=== PATIENT | female | born 1975 | race Caucasian/White ===

== ENCOUNTER 2019-02-16 19:43 | Emergency (ER) | payer SELFPAY ==
[~2019-02-16] VITALS: Ht 165.1 cm; Wt 104.5 kg
[2019-02-16] MEDS ORDERED: MORPHINE SULFATE 2 MG/ML SYRINGE IVP ONE (20:30)
[2019-02-16] MEDS ORDERED: ONDANSETRON HCL 4 MG/2 ML VIAL IVP ONE (20:30)
[2019-02-16] MEDS ORDERED: KETOROLAC TROMETHAMINE 30 MG/ML VIAL IVP ONE (20:30)
[2019-02-16 20:45] LABS: BASOPHILS % (AUTO) 1.3 % (0.0-2.0); HEMATOCRIT 41.1 % (36-46); HEMOGLOBIN 13.4 g/dL (12.0-16.0); LYMPHOCYTES # (AUTO) 3.6 K/uL (1.0-4.8); LYMPHOCYTES % (AUTO) 39.3 % (22.0-44.0); MEAN CORPUSCULAR HEMOGLOBIN 28.7 pg (26.0-34.0); MEAN CORPUSCULAR HGB CONC 32.7 G/dL (31.0-37.0); MEAN CORPUSCULAR VOLUME 88 fL (80-100); MONOCYTES # (AUTO) 0.4 K/uL (0.1-1.0); MONOCYTES % (AUTO) 4.6 % (2.0-9.0); NEUTROPHILS # (AUTO) 4.9 K/uL (1.8-7.7); NEUTROPHILS % (AUTO) 53.8 % (40.0-70.0); PLATELET COUNT (AUTO) 305 K/uL (150-450); RED BLOOD CELL COUNT(AUTO) 4.69 MIL/uL (4.00-5.20); RED CELL DISTRIBUTION WIDTH 13.8 % (11.5-14.5)
[2019-02-16 20:53] LABS: ANION GAP 12 mmol/L (8-16); CALCIUM, TOTAL 10.3 mg/dL (8.8-10.5); CARBON DIOXIDE 23 mmol/L (22-29); CHLORIDE 99 mmol/L (98-107); CREATININE 0.74 mg/dL (0.60-1.30); GLOMERULAR FILTR. RATE CALC > 60 mL/min (>60); GLUCOSE,RANDOM 180 mg/dL (70-110); POTASSIUM 3.7 mmol/L (3.5-5.1); SODIUM SERUM 134 mmol/L (136-145); UREA NITROGEN, BLOOD 11 mg/dL (7-18)
[2019-02-16 20:59] LABS: ALANINE AMINOTRANSFERASE 27 U/L (12-78); ALBUMIN 3.8 g/dL (3.4-5.0); ALKALINE PHOSPHATASE 85 U/L (46-116); ASPARTATE AMINOTRANSFERASE 22 U/L (15-37); BILIRUBIN,TOTAL 0.2 mg/dL (0.1-1.0); TOTAL PROTEIN, SERUM 7.6 g/dL (6.4-8.2)
[2019-02-16 23:01] VITALS: BP 140/92
== END 2019-02-16 21:56 | disposition home or self-care (01) ==
LOC: EMS 19:45
DX: M94.0 Chondrocostal junction syndrome [Tietze] (principal); E11.9 Type 2 diabetes mellitus without complications
CPT/HCPCS: 36415; 71046; 80053; 84484; 85025; 93005; 96374; 96375; 99284; J1885; J2270; J2405

== ENCOUNTER 2019-07-22 21:15 | Emergency (ER) | payer SELFPAY ==
[~2019-07-22] VITALS: Ht 165.1 cm; Wt 100.5 kg
[2019-07-22 22:07] LABS: GLUCOSE,POINT OF CARE 169 MG/DL (70-110)
[2019-07-22] MEDS ORDERED: IBUPROFEN 600 MG TABLET PO ONE (23:30)
[2019-07-22] MEDS ORDERED: ACETAMINOPHEN 500 MG TABLET PO ONE (23:30)
[2019-07-23 02:24] VITALS: BP 125/74
== END 2019-07-23 02:26 | disposition home or self-care (01) ==
LOC: EMS 21:17
DX: S93.491A Sprain of other ligament of right ankle, initial encounter (principal); E11.9 Type 2 diabetes mellitus without complications; X50.1XXA Overexertion from prolonged static or awkward postures, initial encounter; Y93.01 Activity, walking, marching and hiking; Y92.89 Other specified places as the place of occurrence of the external cause; Y99.8 Other external cause status
CPT/HCPCS: 29515

== ENCOUNTER 2019-12-20 22:46 | Emergency (ER) | payer MEDICAID, OTHER ==
[~2019-12-20] VITALS: Ht 165.1 cm; Wt 106.8 kg
[2019-12-21] MEDS ORDERED: KETOROLAC TROMETHAMINE 60 MG/2 ML VIAL IM ONE (01:15)
[2019-12-21 01:27] LABS: BASOPHILS % (AUTO) 0.9 % (0.0-2.0); EOSINOPHILS % (AUTO) 2.1 % (1.0-6.0); HEMATOCRIT 35.9 % (36-46); HEMOGLOBIN 12.1 g/dL (12.0-16.0); LYMPHOCYTES # (AUTO) 3.4 K/uL (1.0-4.8); MEAN CORPUSCULAR HEMOGLOBIN 28.8 pg (26.0-34.0); MEAN CORPUSCULAR HGB CONC 33.6 G/dL (31.0-37.0); MEAN CORPUSCULAR VOLUME 86 fL (80-100); MONOCYTES # (AUTO) 0.6 K/uL (0.1-1.0); MONOCYTES % (AUTO) 7.7 % (2.0-9.0); NEUTROPHILS # (AUTO) 3.2 K/uL (1.8-7.7); NEUTROPHILS % (AUTO) 43.3 % (40.0-70.0); PLATELET COUNT (AUTO) 292 K/uL (150-450); RED BLOOD CELL COUNT(AUTO) 4.19 MIL/uL (4.00-5.20)
[2019-12-21 01:45] LABS: ANION GAP 7 mmol/L (8-16); CALCIUM, TOTAL 9.1 mg/dL (8.8-10.5); CARBON DIOXIDE 26 mmol/L (22-29); CHLORIDE 101 mmol/L (98-107); CREATININE 0.73 mg/dL (0.60-1.30); GLOMERULAR FILTR. RATE CALC > 60 mL/min (>60); GLUCOSE,RANDOM 192 mg/dL (70-110); POTASSIUM 3.9 mmol/L (3.5-5.1); SODIUM SERUM 134 mmol/L (136-145); UREA NITROGEN, BLOOD 12 mg/dL (7-18)
[2019-12-21 01:56] LABS: ALANINE AMINOTRANSFERASE 25 U/L (12-78); ALBUMIN 3.3 g/dL (3.4-5.0); ALKALINE PHOSPHATASE 73 U/L (46-116); ASPARTATE AMINOTRANSFERASE 17 U/L (15-37); BILIRUBIN,TOTAL 0.2 mg/dL (0.1-1.0); HCG,QUANTITATIVE < 1 mIU/mL (0-6); TOTAL PROTEIN, SERUM 6.8 g/dL (6.4-8.2)
[2019-12-21 02:52] LABS: B-TYPE NATRIURETIC PEPTIDE 6 pg/mL (0-100)
[2019-12-21 03:39] VITALS: BP 121/74
== END 2019-12-21 04:13 | disposition home or self-care (01) ==
LOC: EMS 22:47
DX: E11.65 Type 2 diabetes mellitus with hyperglycemia (principal); F41.9 Anxiety disorder, unspecified
CPT/HCPCS: 85379; 93005; 96372

== ENCOUNTER 2020-02-13 18:04 | Emergency (ER) | payer MEDICAID, OTHER ==
[~2020-02-13] VITALS: Ht 165.1 cm; Wt 106.8 kg
[2020-02-13] MEDS ORDERED: DiphenhydrAMINE HCL 50 MG/ML VIAL IVP STA (19:40)
[2020-02-13] MEDS ORDERED: METOCLOPRAMIDE HCL 5 MG/ML 2 ML VIAL IVP ONE (19:45)
[2020-02-13] MEDS ORDERED: ACETAMINOPHEN 500 MG TABLET PO ONE (19:45)
[2020-02-13] MEDS ORDERED: KETOROLAC TROMETHAMINE 30 MG/ML VIAL IVP ONE (19:45)
[2020-02-13] MEDS ORDERED: SODIUM CHLORIDE 0.9% 1,000 ML IV ONE (19:45)
[2020-02-13 20:03] LABS: BASOPHILS % (AUTO) 1.1 % (0.0-2.0); EOSINOPHILS % (AUTO) 1.5 % (1.0-6.0); HEMATOCRIT 38.1 % (36-46); HEMOGLOBIN 12.7 g/dL (12.0-16.0); LYMPHOCYTES % (AUTO) 43.1 % (22.0-44.0); MEAN CORPUSCULAR HEMOGLOBIN 28.7 pg (26.0-34.0); MEAN CORPUSCULAR HGB CONC 33.3 G/dL (31.0-37.0); MEAN CORPUSCULAR VOLUME 86 fL (80-100); MONOCYTES # (AUTO) 0.5 K/uL (0.1-1.0); MONOCYTES % (AUTO) 5.4 % (2.0-9.0); NEUTROPHILS # (AUTO) 4.6 K/uL (1.8-7.7); NEUTROPHILS % (AUTO) 48.9 % (40.0-70.0); PLATELET COUNT (AUTO) 315 K/uL (150-450); RED BLOOD CELL COUNT(AUTO) 4.42 MIL/uL (4.00-5.20); RED CELL DISTRIBUTION WIDTH 13.9 % (11.5-14.5)
[2020-02-13 20:04] LABS: APPEARANCE,URINE CLEAR (CLEAR); BILIRUBIN,URINE NEGATIVE (NEGATIVE); GLUCOSE, URINE (UA) NEGATIVE (NEGATIVE); KETONES,URINE NEGATIVE (NEGATIVE); LEUKOCYTE ESTERASE ,URINE NEGATIVE (NEGATIVE); NITRATE,URINE NEGATIVE (NEGATIVE); OCCULT BLOOD,URINE NEGATIVE (NEGATIVE); PROTEIN,URINE NEGATIVE (NEGATIVE); UROBILINOGEN,URINE 0.2 mg/dL (<=1.0)
[2020-02-13 20:19] LABS: BACTERIA,URINE None Seen /HPF (None Seen); RBC,URINE None Seen /HPF (0-2); SQUAMOUS EPITHELIAL CELL,UR Few /LPF (None Seen); WBC,URINE None Seen /HPF (0-5)
[2020-02-13 20:33] LABS: ANION GAP 8 mmol/L (8-16); CALCIUM, TOTAL 9.4 mg/dL (8.8-10.5); CARBON DIOXIDE 30 mmol/L (22-29); CHLORIDE 99 mmol/L (98-107); CREATININE 0.77 mg/dL (0.60-1.30); GLOMERULAR FILTR. RATE CALC > 60 mL/min (>60); GLUCOSE,RANDOM 128 mg/dL (70-110); POTASSIUM 3.9 mmol/L (3.5-5.1); SODIUM SERUM 137 mmol/L (136-145); UREA NITROGEN, BLOOD 10 mg/dL (7-18)
[2020-02-13 20:39] LABS: ALANINE AMINOTRANSFERASE 32 U/L (12-78); ALBUMIN 3.6 g/dL (3.4-5.0); ALKALINE PHOSPHATASE 57 U/L (46-116); ASPARTATE AMINOTRANSFERASE 19 U/L (15-37); BILIRUBIN,TOTAL 0.2 mg/dL (0.1-1.0); TOTAL PROTEIN, SERUM 7.4 g/dL (6.4-8.2)
[2020-02-13 22:00] VITALS: BP 138/80
== END 2020-02-13 23:00 | disposition home or self-care (01) ==
LOC: EMS 18:08
DX: G43.909 Migraine, unspecified, not intractable, without status migrainosus (principal); E11.9 Type 2 diabetes mellitus without complications; R10.9 Unspecified abdominal pain; M54.5 Low back pain
CPT/HCPCS: 36415; 80053; 81001; 85025; 96374; 96375; 99284; J1200; J1885; J2765; J7030

== ENCOUNTER 2020-03-16 14:06 | Emergency (ER) | payer OTHER ==
[~2020-03-16] VITALS: Ht 172.7 cm; Wt 106.8 kg
[2020-03-16] MEDS ORDERED: DiphenhydrAMINE HCL 50 MG/ML VIAL IVP STA (14:56)
[2020-03-16] MEDS ORDERED: METOCLOPRAMIDE HCL 5 MG/ML 2 ML VIAL IVP ONE (15:00)
[2020-03-16] MEDS ORDERED: ACETAMINOPHEN 500 MG TABLET PO ONE (15:00)
[2020-03-16] MEDS ORDERED: KETOROLAC TROMETHAMINE 30 MG/ML VIAL IVP ONE (15:00)
[2020-03-16] MEDS ORDERED: SODIUM CHLORIDE 0.9% 1,000 ML IV ONE ×2 (15:00→17:00)
[2020-03-16 15:08] LABS: BASOPHILS % (AUTO) 0.5 % (0.0-2.0); EOSINOPHILS % (AUTO) 0.4 % (1.0-6.0); HEMATOCRIT 36.1 % (36-46); HEMOGLOBIN 12.5 g/dL (12.0-16.0); LYMPHOCYTES # (AUTO) 1.6 K/uL (1.0-4.8); LYMPHOCYTES % (AUTO) 30.5 % (22.0-44.0); MEAN CORPUSCULAR HEMOGLOBIN 29.7 pg (26.0-34.0); MEAN CORPUSCULAR HGB CONC 34.6 G/dL (31.0-37.0); MEAN CORPUSCULAR VOLUME 86 fL (80-100); MONOCYTES # (AUTO) 0.4 K/uL (0.1-1.0); MONOCYTES % (AUTO) 8.1 % (2.0-9.0); NEUTROPHILS # (AUTO) 3.2 K/uL (1.8-7.7); NEUTROPHILS % (AUTO) 60.5 % (40.0-70.0); PLATELET COUNT (AUTO) 283 K/uL (150-450); RED CELL DISTRIBUTION WIDTH 13.8 % (11.5-14.5)
[2020-03-16 15:36] LABS: ALANINE AMINOTRANSFERASE 41 U/L (12-78); ALBUMIN 3.4 g/dL (3.4-5.0); ALKALINE PHOSPHATASE 74 U/L (46-116); ANION GAP 7 mmol/L (8-16); ASPARTATE AMINOTRANSFERASE 28 U/L (15-37); BILIRUBIN,TOTAL 0.2 mg/dL (0.1-1.0); C-REACTIVE PROTEIN QUANT 2.63 mg/dL (0.00-0.30); CALCIUM, TOTAL 9.5 mg/dL (8.8-10.5); CARBON DIOXIDE 29 mmol/L (22-29); CHLORIDE 97 mmol/L (98-107); CREATINE KINASE, TOTAL ONLY 73 U/L (26-192); CREATININE 0.97 mg/dL (0.60-1.30); FERRITIN 72 ng/mL (8-252); GLOMERULAR FILTR. RATE CALC > 60 mL/min (>60); GLUCOSE,RANDOM 226 mg/dL (70-110); HCG,QUANTITATIVE < 1 mIU/mL (0-6); LACTATE DEHYDROGENASE 134 U/L (81-234); POTASSIUM 3.4 mmol/L (3.5-5.1); SODIUM SERUM 133 mmol/L (136-145); TOTAL PROTEIN, SERUM 7.5 g/dL (6.4-8.2); UREA NITROGEN, BLOOD 9 mg/dL (7-18)
[2020-03-16 15:39] LABS: D-DIMER 0.24 mg/L FEU (0.00-0.50); PROTHROMBIN TIME 10.6 SEC (9.4-11.6)
[2020-03-16 15:46] LABS: B-TYPE NATRIURETIC PEPTIDE < 5 pg/mL (0-100)
[2020-03-16] MEDS ORDERED: POTASSIUM CHLORIDE 20 MEQ ER TABLET PO ONE (16:30)
[2020-03-16] MEDS ORDERED: MORPHINE SULFATE 4 MG/ML SYRINGE IVP ONE (17:00)
[2020-03-16 17:14] VITALS: BP 105/53
== END 2020-03-16 19:40 | disposition home or self-care (01) ==
LOC: EMS 14:27
DX: U07.1 COVID-19 (principal); E87.6 Hypokalemia; J18.9 Pneumonia, unspecified organism; K76.0 Fatty (change of) liver, not elsewhere classified; R16.0 Hepatomegaly, not elsewhere classified; F12.90 Cannabis use, unspecified, uncomplicated; E11.9 Type 2 diabetes mellitus without complications
CPT/HCPCS: 36415; 71045; 76705; 80053; 82550; 82728; 83615; 83880; 84145; 84484; 84702; 85025; 85379; 85610; 85730; 86140; 93005; 96361; 96374; 96375; 99285; J1200; J1885; J2270; J2765; J7030

== ENCOUNTER 2020-03-31 16:22 | Emergency (ER) | payer OTHER ==
[~2020-03-31] VITALS: Ht 165.1 cm; Wt 104.5 kg
[2020-03-31] MEDS ORDERED: ASCO500 PO (16:28)
[2020-03-31 17:05] LABS: BASOPHILS % (AUTO) 1.3 % (0.0-2.0); HEMATOCRIT 39.1 % (36-46); HEMOGLOBIN 13.2 g/dL (12.0-16.0); LYMPHOCYTES % (AUTO) 39.2 % (22.0-44.0); MEAN CORPUSCULAR HEMOGLOBIN 28.9 pg (26.0-34.0); MEAN CORPUSCULAR HGB CONC 33.9 G/dL (31.0-37.0); MEAN CORPUSCULAR VOLUME 86 fL (80-100); MONOCYTES # (AUTO) 0.6 K/uL (0.1-1.0); MONOCYTES % (AUTO) 5.9 % (2.0-9.0); NEUTROPHILS # (AUTO) 5.4 K/uL (1.8-7.7); NEUTROPHILS % (AUTO) 52.6 % (40.0-70.0); PLATELET COUNT (AUTO) 357 K/uL (150-450); RED BLOOD CELL COUNT(AUTO) 4.57 MIL/uL (4.00-5.20); RED CELL DISTRIBUTION WIDTH 14.5 % (11.5-14.5)
[2020-03-31 17:11] LABS: ANION GAP 6 mmol/L (8-16); CALCIUM, TOTAL 9.9 mg/dL (8.8-10.5); CARBON DIOXIDE 30 mmol/L (22-29); CHLORIDE 98 mmol/L (98-107); CREATININE 0.79 mg/dL (0.60-1.30); GLOMERULAR FILTR. RATE CALC > 60 mL/min (>60); GLUCOSE,RANDOM 226 mg/dL (70-110); POTASSIUM 3.8 mmol/L (3.5-5.1); SODIUM SERUM 134 mmol/L (136-145); UREA NITROGEN, BLOOD 14 mg/dL (7-18)
[2020-03-31 17:23] LABS: ALANINE AMINOTRANSFERASE 36 U/L (12-78); ALBUMIN 3.4 g/dL (3.4-5.0); ALKALINE PHOSPHATASE 78 U/L (46-116); ASPARTATE AMINOTRANSFERASE 29 U/L (15-37); BILIRUBIN,TOTAL 0.2 mg/dL (0.1-1.0); CREATINE KINASE, TOTAL ONLY 57 U/L (26-192); HCG,QUANTITATIVE < 1 mIU/mL (0-6); TOTAL PROTEIN, SERUM 7.4 g/dL (6.4-8.2)
[2020-03-31 17:29] LABS: B-TYPE NATRIURETIC PEPTIDE 7 pg/mL (0-100)
[2020-03-31 18:42] LABS: D-DIMER 0.36 mg/L FEU (0.00-0.50)
[2020-03-31 19:35] VITALS: BP 138/87
== END 2020-03-31 20:00 | disposition home or self-care (01) ==
LOC: EMS 16:22
DX: R06.02 Shortness of breath (principal); F12.90 Cannabis use, unspecified, uncomplicated; E11.9 Type 2 diabetes mellitus without complications; Z20.828 Contact with and (suspected) exposure to other viral communicable diseases
CPT/HCPCS: 85379; 87426; 93005; 36415-L1; 36415-TC; 71045-TC

== ENCOUNTER 2020-04-07 19:32 | Emergency (ER) | payer OTHER ==
[~2020-04-07] VITALS: Ht 165.1 cm; Wt 109.1 kg
[~2020-04-07 19:32] MED LIST: ASCO500 PO
[2020-04-07 19:48] VITALS: BP 119/64
[2020-04-07 21:10] LABS: BASOPHILS % (AUTO) 3.3 % (0.0-2.0); EOSINOPHILS % (AUTO) 1.7 % (1.0-6.0); HEMATOCRIT 34.7 % (36-46); LYMPHOCYTES # (AUTO) 3.2 K/uL (1.0-4.8); LYMPHOCYTES % (AUTO) 39.4 % (22.0-44.0); MEAN CORPUSCULAR HEMOGLOBIN 29.9 pg (26.0-34.0); MEAN CORPUSCULAR HGB CONC 34.5 G/dL (31.0-37.0); MEAN CORPUSCULAR VOLUME 87 fL (80-100); MONOCYTES # (AUTO) 0.6 K/uL (0.1-1.0); NEUTROPHILS % (AUTO) 48.6 % (40.0-70.0); PLATELET COUNT (AUTO) 324 K/uL (150-450); RED BLOOD CELL COUNT(AUTO) 4.01 MIL/uL (4.00-5.20); RED CELL DISTRIBUTION WIDTH 14.2 % (11.5-14.5)
[2020-04-07 21:19] LABS: ANION GAP 7 mmol/L (8-16); CALCIUM, TOTAL 9.7 mg/dL (8.8-10.5); CARBON DIOXIDE 32 mmol/L (22-29); CHLORIDE 101 mmol/L (98-107); CREATININE 0.81 mg/dL (0.60-1.30); GLOMERULAR FILTR. RATE CALC > 60 mL/min (>60); GLUCOSE,RANDOM 285 mg/dL (70-110); POTASSIUM 3.9 mmol/L (3.5-5.1); SODIUM SERUM 140 mmol/L (136-145); UREA NITROGEN, BLOOD 11 mg/dL (7-18)
[2020-04-07 21:24] LABS: ALANINE AMINOTRANSFERASE 39 U/L (12-78); ALBUMIN 3.4 g/dL (3.4-5.0); ALKALINE PHOSPHATASE 86 U/L (46-116); ASPARTATE AMINOTRANSFERASE 30 U/L (15-37); BILIRUBIN,TOTAL 0.2 mg/dL (0.1-1.0)
== END 2020-04-07 21:50 | disposition left against medical advice (07) ==
LOC: EMS 19:32
DX: R00.2 Palpitations (principal); Z53.21 Procedure and treatment not carried out due to patient leaving prior to being seen by health care provider
CPT/HCPCS: 36415; 80053; 85025; 93005; G0480

== ENCOUNTER 2020-07-12 12:59 | Emergency (ER) | payer OTHER ==
[~2020-07-12] VITALS: Ht 175.3 cm; Wt 106.8 kg
[2020-07-12 15:33] LABS: BASOPHILS % (AUTO) 0.7 % (0.0-2.0); EOSINOPHILS % (AUTO) 1.5 % (1.0-6.0); HEMATOCRIT 37.5 % (36-46); HEMOGLOBIN 12.4 g/dL (12.0-16.0); LYMPHOCYTES # (AUTO) 3.3 K/uL (1.0-4.8); LYMPHOCYTES % (AUTO) 42.6 % (22.0-44.0); MEAN CORPUSCULAR HEMOGLOBIN 27.9 pg (26.0-34.0); MEAN CORPUSCULAR VOLUME 84 fL (80-100); MONOCYTES # (AUTO) 0.5 K/uL (0.1-1.0); MONOCYTES % (AUTO) 6.1 % (2.0-9.0); NEUTROPHILS # (AUTO) 3.8 K/uL (1.8-7.7); NEUTROPHILS % (AUTO) 49.1 % (40.0-70.0); PLATELET COUNT (AUTO) 285 K/uL (150-450); RED BLOOD CELL COUNT(AUTO) 4.44 MIL/uL (4.00-5.20); RED CELL DISTRIBUTION WIDTH 14.5 % (11.5-14.5)
[2020-07-12 15:48] LABS: ANION GAP 11 mmol/L (8-16); CALCIUM, TOTAL 8.9 mg/dL (8.8-10.5); CARBON DIOXIDE 25 mmol/L (22-29); CHLORIDE 100 mmol/L (98-107); GLOMERULAR FILTR. RATE CALC > 60 mL/min (>60); GLUCOSE,RANDOM 242 mg/dL (70-110); POTASSIUM 3.6 mmol/L (3.5-5.1); SODIUM SERUM 136 mmol/L (136-145); UREA NITROGEN, BLOOD 8 mg/dL (7-18)
[2020-07-12 15:55] LABS: ALANINE AMINOTRANSFERASE 36 U/L (12-78); ALBUMIN 3.4 g/dL (3.4-5.0); ALKALINE PHOSPHATASE 86 U/L (46-116); ASPARTATE AMINOTRANSFERASE 21 U/L (15-37); BILIRUBIN,TOTAL 0.1 mg/dL (0.1-1.0); LIPASE 142 U/L (73-393); TOTAL PROTEIN, SERUM 7.1 g/dL (6.4-8.2)
[2020-07-12 17:16] LABS: APPEARANCE,URINE CLEAR (CLEAR); BILIRUBIN,URINE NEGATIVE (NEGATIVE); GLUCOSE, URINE (UA) 500 mg/dL (NEGATIVE); KETONES,URINE NEGATIVE (NEGATIVE); LEUKOCYTE ESTERASE ,URINE NEGATIVE (NEGATIVE); NITRATE,URINE NEGATIVE (NEGATIVE); OCCULT BLOOD,URINE NEGATIVE (NEGATIVE); PH,URINE 6.5 (5.0-8.0); PROTEIN,URINE NEGATIVE (NEGATIVE); UROBILINOGEN,URINE 0.2 mg/dL (<=1.0)
[2020-07-12 17:38] LABS: BACTERIA,URINE None Seen /HPF (None Seen); RBC,URINE None Seen /HPF (0-2); SQUAMOUS EPITHELIAL CELL,UR Rare /LPF (None Seen); WBC,URINE 0-2 /HPF (0-5)
[2020-07-12] MEDS ORDERED: IOVERSOL 350 MG/ML 100 ML VIAL ONE (18:50)
[2020-07-12] MEDS ORDERED: SODIUM CHLORIDE 0.9% 100 ML ONE (18:50)
[2020-07-12 23:14] VITALS: BP 127/74
== END 2020-07-12 23:26 | disposition home or self-care (01) ==
LOC: EMS 13:08
DX: R33.9 Retention of urine, unspecified (principal); R10.10 Upper abdominal pain, unspecified; E11.9 Type 2 diabetes mellitus without complications; F12.90 Cannabis use, unspecified, uncomplicated; Z90.89 Acquired absence of other organs
CPT/HCPCS: 36415; 51701; 74177; 80053; 81001; 81025; 82962; 83690; 85025; 99285; J7050; Q9967; 51702

== ENCOUNTER 2020-07-16 14:35 | Emergency (ER) | payer OTHER ==
[~2020-07-16] VITALS: Ht 165.7 cm; Wt 109.1 kg
[2020-07-16 21:01] LABS: APPEARANCE,URINE CLOUDY (CLEAR); BILIRUBIN,URINE NEGATIVE (NEGATIVE); GLUCOSE, URINE (UA) >=1000 mg/dL (NEGATIVE); KETONES,URINE NEGATIVE (NEGATIVE); LEUKOCYTE ESTERASE ,URINE NEGATIVE (NEGATIVE); NITRATE,URINE NEGATIVE (NEGATIVE); OCCULT BLOOD,URINE LARGE (NEGATIVE); PH,URINE 5.5 (5.0-8.0); PROTEIN,URINE SEE CONFIRM (NEGATIVE); UROBILINOGEN,URINE 0.2 mg/dL (<=1.0)
[2020-07-16 21:19] LABS: SULFOSALICYLIC ACID,URINE 2+ (Negative)
[2020-07-16 21:20] LABS: RBC,URINE 26-50 /HPF (0-2); WBC,URINE 0-2 /HPF (0-5)
[2020-07-16 21:21] LABS: BACTERIA,URINE None Seen /HPF (None Seen); SQUAMOUS EPITHELIAL CELL,UR Rare /LPF (None Seen)
[2020-07-16 22:03] VITALS: BP 129/74
== END 2020-07-16 22:20 | disposition home or self-care (01) ==
LOC: EMS 14:40
DX: R33.9 Retention of urine, unspecified (principal); E11.9 Type 2 diabetes mellitus without complications; E78.00 Pure hypercholesterolemia, unspecified; F12.90 Cannabis use, unspecified, uncomplicated

== ENCOUNTER 2021-02-12 20:45 | Emergency (ER) | payer OTHER ==
[~2021-02-12] VITALS: Ht 165.1 cm; Wt 106.8 kg
[2021-02-12 21:40] LABS: GLUCOMETER DEV NAME(LOC) ERT.5; GLUCOSE,POINT OF CARE 379 MG/DL (70-110)
[2021-02-12 21:56] LABS: COVID AG,FIA SOURCE NASOPHARYNGEAL
[2021-02-12 22:05] LABS: EOSINOPHILS % (AUTO) 1.4 % (1.0-6.0); HEMATOCRIT 38.7 % (36-46); HEMOGLOBIN 12.8 g/dL (12.0-16.0); LYMPHOCYTES # (AUTO) 3.7 K/uL (1.0-4.8); MEAN CORPUSCULAR HEMOGLOBIN 28.5 pg (26.0-34.0); MEAN CORPUSCULAR VOLUME 86 fL (80-100); MONOCYTES # (AUTO) 0.5 K/uL (0.1-1.0); MONOCYTES % (AUTO) 6.8 % (2.0-9.0); NEUTROPHILS # (AUTO) 3.5 K/uL (1.8-7.7); NEUTROPHILS % (AUTO) 43.8 % (40.0-70.0); PLATELET COUNT (AUTO) 308 K/uL (150-450); RED BLOOD CELL COUNT(AUTO) 4.48 MIL/uL (4.00-5.20)
[2021-02-12 22:18] LABS: ANION GAP 8 mmol/L (8-16); CALCIUM, TOTAL 9.2 mg/dL (8.8-10.5); CARBON DIOXIDE 26 mmol/L (22-29); CHLORIDE 97 mmol/L (98-107); CREATININE 0.69 mg/dL (0.60-1.30); GLOMERULAR FILTR. RATE CALC > 60 mL/min (>60); GLUCOSE,RANDOM 379 mg/dL (70-110); POTASSIUM 3.8 mmol/L (3.5-5.1); SODIUM SERUM 131 mmol/L (136-145); UREA NITROGEN, BLOOD 10 mg/dL (7-18)
[2021-02-12 22:28] LABS: INFLUENZA TYPE A NEGATIVE FOR TYPE A (NEGATIVE); INFLUENZA TYPE B NEGATIVE FOR TYPE B (NEGATIVE)
[2021-02-12 22:29] LABS: PROTHROMBIN TIME 10.6 SEC (9.4-11.6)
[2021-02-12 22:34] LABS: ALANINE AMINOTRANSFERASE 41 U/L (12-78); ALBUMIN 3.3 g/dL (3.4-5.0); ALKALINE PHOSPHATASE 131 U/L (46-116); ASPARTATE AMINOTRANSFERASE 22 U/L (15-37); B-TYPE NATRIURETIC PEPTIDE 10 pg/mL (0-100); BILIRUBIN,TOTAL 0.1 mg/dL (0.1-1.0); CREATINE KINASE, TOTAL ONLY 89 U/L (26-192); HCG,QUANTITATIVE < 1 mIU/mL (0-6)
[2021-02-12 22:38] LABS: RAPID GROUP A STREP NEGATIVE (NEGATIVE)
[2021-02-12] MEDS ORDERED: INSULIN REGULAR, HUMAN 100 UNITS/ML IVP ONE (23:15)
[2021-02-12] MEDS ORDERED: SODIUM CHLORIDE 0.9% 1,000 ML IV ONE (23:15)
[2021-02-13 01:07] VITALS: BP 129/78
== END 2021-02-13 01:21 | disposition home or self-care (01) ==
LOC: EMS 20:47
DX: J06.9 Acute upper respiratory infection, unspecified (principal); E11.9 Type 2 diabetes mellitus without complications; E78.00 Pure hypercholesterolemia, unspecified; Z20.822 Contact with and (suspected) exposure to COVID-19; Z90.89 Acquired absence of other organs
CPT/HCPCS: 36415; 71045; 80053; 82550; 82962; 83880; 84484; 84702; 85025; 85610; 85730; 87426; 87430; 87804; 93005; 96361; 96374; 99285; J1815; J7030; 82948

== ENCOUNTER 2021-03-05 17:15 | Emergency (ER) | payer OTHER ==
[~2021-03-05] VITALS: Ht 165.1 cm; Wt 111.2 kg
[2021-03-05] MEDS ORDERED: FAMOTIDINE 10 MG/ML 2 ML VIAL IVP ONE (17:30)
[2021-03-05] MEDS ORDERED: SODIUM CHLORIDE 0.9% 1,000 ML IV ONE (17:30)
[2021-03-05] MEDS ORDERED: DiphenhydrAMINE HCL 50 MG/ML VIAL IVP ONE (17:30)
[2021-03-05] MEDS ORDERED: DEXAMETHASONE SOD PHOS 4 MG/ML 5 ML VIAL IVP ONE (17:30)
[2021-03-05 20:08] VITALS: BP 149/88
== END 2021-03-05 20:27 | disposition home or self-care (01) ==
LOC: EMS 17:24
DX: L50.0 Allergic urticaria (principal)
CPT/HCPCS: 96361; 96374; 96375; 99284; J1100; J1200; J3490; J7030

== ENCOUNTER 2021-03-06 01:07 | Emergency (ER) | payer OTHER ==
[~2021-03-06] VITALS: Ht 165.1 cm; Wt 106.8 kg
[2021-03-06 04:00] VITALS: BP 132/70
[2021-03-06] MEDS ORDERED: DiphenhydrAMINE HCL 50 MG/ML VIAL IM ONE (04:00)
[2021-03-06] MEDS ORDERED: PredniSONE 20 MG TABLET PO ONE (04:00)
[2021-03-06] MEDS ORDERED: TRIAMCINOLONE 0.025% 15 GM CREAM TP ONE (04:00)
== END 2021-03-06 04:48 | disposition home or self-care (01) ==
LOC: EMS 01:10
DX: T78.40XA Allergy, unspecified, initial encounter (principal); E11.9 Type 2 diabetes mellitus without complications; E78.00 Pure hypercholesterolemia, unspecified; F12.90 Cannabis use, unspecified, uncomplicated; X58.XXXA Exposure to other specified factors, initial encounter
CPT/HCPCS: 96372; 99283; J1200; J7512

== ENCOUNTER 2021-07-29 10:04 | Emergency (ER) | payer OTHER ==
[~2021-07-29] VITALS: Ht 165.1 cm; Wt 102.3 kg
[2021-07-29] MEDS ORDERED: ACETAMINOPHEN 500 MG TABLET PO ONE (11:45)
[2021-07-29] MEDS ORDERED: KETOROLAC TROMETHAMINE 30 MG/ML VIAL IVP ONE (11:45)
[2021-07-29] MEDS ORDERED: SODIUM CHLORIDE 0.9% 1,000 ML IV ONE (11:45)
[2021-07-29 12:18] LABS: HEMATOCRIT 37.5 % (36-46); HEMOGLOBIN 12.5 g/dL (12.0-16.0); LYMPHOCYTES # (AUTO) 3.5 K/uL (1.0-4.8); LYMPHOCYTES % (AUTO) 48.5 % (22.0-44.0); MEAN CORPUSCULAR HEMOGLOBIN 27.2 pg (26.0-34.0); MEAN CORPUSCULAR HGB CONC 33.4 G/dL (31.0-37.0); MEAN CORPUSCULAR VOLUME 82 fL (80-100); MONOCYTES # (AUTO) 0.4 K/uL (0.1-1.0); NEUTROPHILS # (AUTO) 3.1 K/uL (1.8-7.7); NEUTROPHILS % (AUTO) 42.5 % (40.0-70.0); PLATELET COUNT (AUTO) 395 K/uL (150-450)
[2021-07-29 12:31] LABS: ANION GAP 9 mmol/L (8-16); CALCIUM, TOTAL 9.3 mg/dL (8.8-10.5); CARBON DIOXIDE 28 mmol/L (22-29); CHLORIDE 100 mmol/L (98-107); CREATININE 0.66 mg/dL (0.60-1.30); GLOMERULAR FILTR. RATE CALC > 60 mL/min (>60); GLUCOSE,RANDOM 154 mg/dL (70-110); POTASSIUM 3.7 mmol/L (3.5-5.1); SODIUM SERUM 137 mmol/L (136-145); UREA NITROGEN, BLOOD 10 mg/dL (7-18)
[2021-07-29 12:37] LABS: ALANINE AMINOTRANSFERASE 26 U/L (12-78); ALBUMIN 3.3 g/dL (3.4-5.0); ALKALINE PHOSPHATASE 91 U/L (46-116); ASPARTATE AMINOTRANSFERASE 18 U/L (15-37); BILIRUBIN,TOTAL 0.2 mg/dL (0.1-1.0); CREATINE KINASE, TOTAL ONLY 71 U/L (26-192); TOTAL PROTEIN, SERUM 7.5 g/dL (6.4-8.2)
[2021-07-29 12:44] LABS: B-TYPE NATRIURETIC PEPTIDE < 5 pg/mL (0-100)
[2021-07-29 13:15] VITALS: BP 139/76
== END 2021-07-29 13:16 | disposition home or self-care (01) ==
LOC: EMS 10:13
DX: R07.2 Precordial pain (principal); E11.9 Type 2 diabetes mellitus without complications; E78.00 Pure hypercholesterolemia, unspecified
CPT/HCPCS: 71045; 80053; 82550; 82962; 83880; 84484; 85025; 85379; 93005; 96361; 96374; 99285; J1885; J7030; 36415-L1; 36415-TC

== ENCOUNTER 2022-01-22 19:27 | Emergency (ER) | payer OTHER ==
[~2022-01-22] VITALS: Ht 165.1 cm; Wt 104.5 kg
[2022-01-22] MEDS ORDERED: METF-1211 PO (19:41)
[2022-01-22 20:08] LABS: EOSINOPHILS % (AUTO) 5.6 % (1.0-6.0); HEMATOCRIT 33.9 % (36-46); HEMOGLOBIN 10.8 g/dL (12.0-16.0); LYMPHOCYTES # (AUTO) 2.7 K/uL (1.0-4.8); LYMPHOCYTES % (AUTO) 33.8 % (22.0-44.0); MEAN CORPUSCULAR HGB CONC 31.9 G/dL (31.0-37.0); MEAN CORPUSCULAR VOLUME 75 fL (80-100); MONOCYTES # (AUTO) 0.7 K/uL (0.1-1.0); MONOCYTES % (AUTO) 9.1 % (2.0-9.0); NEUTROPHILS % (AUTO) 50.5 % (40.0-70.0); PLATELET COUNT (AUTO) 355 K/uL (150-450); RED CELL DISTRIBUTION WIDTH 17.6 % (11.5-14.5)
[2022-01-22 20:18] LABS: ANION GAP 7 mmol/L (8-16); CALCIUM, TOTAL 8.8 mg/dL (8.8-10.5); CARBON DIOXIDE 26 mmol/L (22-29); CHLORIDE 99 mmol/L (98-107); CREATININE 0.65 mg/dL (0.60-1.30); GLUCOSE,RANDOM 284 mg/dL (70-110); SODIUM SERUM 132 mmol/L (136-145); UREA NITROGEN, BLOOD 16 mg/dL (7-18)
[2022-01-22 20:20] LABS: GLOMERULAR FILTR. RATE CALC > 60 mL/min (>60)
[2022-01-22 20:25] LABS: ALANINE AMINOTRANSFERASE 218 U/L (12-78); ALBUMIN 2.9 g/dL (3.4-5.0); ALKALINE PHOSPHATASE 88 U/L (46-116); ASPARTATE AMINOTRANSFERASE 74 U/L (15-37); BILIRUBIN,TOTAL 0.1 mg/dL (0.1-1.0); TOTAL PROTEIN, SERUM 6.7 g/dL (6.4-8.2)
[2022-01-22] MEDS ORDERED: KETOROLAC TROMETHAMINE 30 MG/ML VIAL IM ONE (22:30)
[2022-01-22] MEDS ORDERED: FLUC150T61 PO (22:55)
[2022-01-22 23:00] VITALS: BP 130/68
== END 2022-01-22 23:08 | disposition home or self-care (01) ==
LOC: EMS 19:31
DX: M94.0 Chondrocostal junction syndrome [Tietze] (principal); E11.9 Type 2 diabetes mellitus without complications; E78.00 Pure hypercholesterolemia, unspecified; E66.01 Morbid (severe) obesity due to excess calories; Z86.11 Personal history of tuberculosis; Z98.3 Post therapeutic collapse of lung status; Z90.49 Acquired absence of other specified parts of digestive tract
CPT/HCPCS: 99285; 71045; 80053; 84484; 85025; 85379; 36415; 93005; 96372; J1885

== ENCOUNTER 2022-05-05 12:55 | Emergency (ER) | payer OTHER ==
[~2022-05-05] VITALS: Ht 165.1 cm; Wt 109.1 kg
[~2022-05-05 12:55] MED LIST changes: -ASCO500 PO; +FLUC150T61 PO; +METF-1211 PO
[2022-05-05 13:07] VITALS: BP 151/63
[2022-05-05] MEDS ORDERED: ROSU20TA73 PO (13:24)
[2022-05-05] MEDS ORDERED: EMPA10TA3 PO (13:24)
[2022-05-05] MEDS ORDERED: TRAZ-252 PO (13:24)
[2022-05-05] MEDS ORDERED: CETI10TA58 PO (13:24)
[2022-05-05] MEDS ORDERED: DULA1.5P SQ (13:24)
[2022-05-05] MEDS ORDERED: OMEG10005 PO (13:24)
[2022-05-05] MEDS ORDERED: FLUC150T61 PO (15:28)
[2022-05-05] MEDS ORDERED: HYDR30CR3 TP (15:28)
[2022-05-05] MEDS ORDERED: CEPH-558 PO (15:28)
[2022-05-05] MEDS ORDERED: MICO45CR16 VG (15:28)
[2022-05-05 15:36] LABS: EOSINOPHILS % (AUTO) 1.3 % (1.0-6.0); HEMATOCRIT 37.8 % (36-46); HEMOGLOBIN 12.1 g/dL (12.0-16.0); LYMPHOCYTES # (AUTO) 3.6 K/uL (1.0-4.8); LYMPHOCYTES % (AUTO) 37.1 % (22.0-44.0); MEAN CORPUSCULAR HEMOGLOBIN 25.5 pg (26.0-34.0); MEAN CORPUSCULAR HGB CONC 32.1 G/dL (31.0-37.0); MEAN CORPUSCULAR VOLUME 79 fL (80-100); MONOCYTES # (AUTO) 0.6 K/uL (0.1-1.0); MONOCYTES % (AUTO) 6.3 % (2.0-9.0); NEUTROPHILS # (AUTO) 5.3 K/uL (1.8-7.7); NEUTROPHILS % (AUTO) 54.3 % (40.0-70.0); PLATELET COUNT (AUTO) 326 K/uL (150-450); RED BLOOD CELL COUNT(AUTO) 4.77 MIL/uL (4.00-5.20); RED CELL DISTRIBUTION WIDTH 16.9 % (11.5-14.5)
[2022-05-05 15:51] LABS: ANION GAP 9 mmol/L (8-16); CALCIUM, TOTAL 9.2 mg/dL (8.8-10.5); CARBON DIOXIDE 25 mmol/L (22-29); CHLORIDE 95 mmol/L (98-107); CREATININE 0.61 mg/dL (0.60-1.30); GLOMERULAR FILTR. RATE CALC > 60 mL/min (>60); GLUCOSE,RANDOM 284 mg/dL (70-110); POTASSIUM 3.6 mmol/L (3.5-5.1); SODIUM SERUM 129 mmol/L (136-145); UREA NITROGEN, BLOOD 12 mg/dL (7-18)
[2022-05-05 15:56] LABS: ALANINE AMINOTRANSFERASE 23 U/L (12-78); ALBUMIN 3.3 g/dL (3.4-5.0); ALKALINE PHOSPHATASE 94 U/L (46-116); ASPARTATE AMINOTRANSFERASE 16 U/L (15-37); BILIRUBIN,TOTAL 0.1 mg/dL (0.1-1.0); TOTAL PROTEIN, SERUM 7.2 g/dL (6.4-8.2)
== END 2022-05-05 15:41 | disposition home or self-care (01) ==
LOC: EMS 13:15
DX: B37.31 Acute candidiasis of vulva and vagina (principal); K64.9 Unspecified hemorrhoids; E11.65 Type 2 diabetes mellitus with hyperglycemia; E78.00 Pure hypercholesterolemia, unspecified; E66.9 Obesity, unspecified; M32.9 Systemic lupus erythematosus, unspecified; Z86.11 Personal history of tuberculosis; Z87.09 Personal history of other diseases of the respiratory system; Z90.49 Acquired absence of other specified parts of digestive tract; Z98.890 Other specified postprocedural states
CPT/HCPCS: 80053; 82962; 84703; 85025; 99283

== ENCOUNTER 2022-06-29 20:53 | Emergency (ER) | payer OTHER ==
[~2022-06-29] VITALS: Ht 165.1 cm; Wt 109.1 kg
[~2022-06-29 20:53] MED LIST changes: +CEPH-558 PO; +CETI10TA58 PO; +DULA1.5P SQ; +EMPA10TA3 PO; +HYDR30CR3 TP; +MICO45CR16 VG; +OMEG10005 PO; +ROSU20TA73 PO; +TRAZ-252 PO
[2022-06-29 21:56] LABS: GLUCOMETER DEV NAME(LOC) ERT.5; GLUCOSE,POINT OF CARE 371 MG/DL (70-110)
[2022-06-29] MEDS ORDERED: SODIUM CHLORIDE 0.9% 1,000 ML IV ONE (22:15)
[2022-06-29] MEDS ORDERED: DiphenhydrAMINE HCL 50 MG/ML VIAL IVP ONE (22:15)
[2022-06-29] MEDS ORDERED: INSULIN REGULAR, HUMAN 100 UNITS/ML IVP ONE (22:15)
[2022-06-29] MEDS ORDERED: HYDROCORTISONE 0.5% 30 GM CREAM TP ONE (22:30)
[2022-06-29] MEDS ORDERED: PERMETHRIN 5% 60 GM CREAM TP ONE (22:30)
[2022-06-29 22:45] LABS: BASOPHILS % (AUTO) 1.4 % (0.0-2.0); EOSINOPHILS % (AUTO) 3.7 % (1.0-6.0); HEMOGLOBIN 11.9 g/dL (12.0-16.0); LYMPHOCYTES # (AUTO) 3.3 K/uL (1.0-4.8); LYMPHOCYTES % (AUTO) 37.8 % (22.0-44.0); MEAN CORPUSCULAR HGB CONC 32.2 G/dL (31.0-37.0); MEAN CORPUSCULAR VOLUME 81 fL (80-100); MONOCYTES # (AUTO) 0.7 K/uL (0.1-1.0); MONOCYTES % (AUTO) 8.1 % (2.0-9.0); NEUTROPHILS # (AUTO) 4.3 K/uL (1.8-7.7); PLATELET COUNT (AUTO) 285 K/uL (150-450); RED BLOOD CELL COUNT(AUTO) 4.58 MIL/uL (4.00-5.20); RED CELL DISTRIBUTION WIDTH 16.6 % (11.5-14.5)
[2022-06-29 22:53] LABS: ANION GAP 10 mmol/L (8-16); CALCIUM, TOTAL 9.4 mg/dL (8.8-10.5); CARBON DIOXIDE 24 mmol/L (22-29); CHLORIDE 96 mmol/L (98-107); CREATININE 0.76 mg/dL (0.60-1.30); GLUCOSE,RANDOM 391 mg/dL (70-110); POTASSIUM 3.7 mmol/L (3.5-5.1); SODIUM SERUM 130 mmol/L (136-145); UREA NITROGEN, BLOOD 14 mg/dL (7-18)
[2022-06-29 22:59] LABS: ALANINE AMINOTRANSFERASE 28 U/L (12-78); ALBUMIN 3.2 g/dL (3.4-5.0); ALKALINE PHOSPHATASE 117 U/L (46-116); ASPARTATE AMINOTRANSFERASE 15 U/L (15-37); BILIRUBIN,TOTAL 0.2 mg/dL (0.1-1.0)
[2022-06-29 23:03] LABS: GLOMERULAR FILTR. RATE CALC > 60 mL/min (>60)
[2022-06-30 00:07] LABS: GLUCOMETER DEV NAME(LOC) ERT.5; GLUCOSE,POINT OF CARE 266 MG/DL (70-110)
[2022-06-30 00:11] VITALS: BP 145/80
== END 2022-06-30 00:28 | disposition home or self-care (01) ==
LOC: EMS 21:09
DX: R21 Rash and other nonspecific skin eruption (principal); B86 Scabies; L30.1 Dyshidrosis [pompholyx]; E66.9 Obesity, unspecified; E11.65 Type 2 diabetes mellitus with hyperglycemia; Z90.49 Acquired absence of other specified parts of digestive tract
CPT/HCPCS: 99284; 96374; 96361; 96375; 80053; 82962; 85025; 36415; 82948; J1200; J1815; J7030

== ENCOUNTER 2022-09-11 10:57 | Emergency (ER) | payer OTHER ==
[~2022-09-11] VITALS: Ht 165.1 cm; Wt 106.8 kg
[~2022-09-11 10:57] MED LIST changes: -CEPH-558 PO; -CETI10TA58 PO; -FLUC150T61 PO; -HYDR30CR3 TP; -MICO45CR16 VG; -OMEG10005 PO; -ROSU20TA73 PO; -TRAZ-252 PO
[2022-09-11] MEDS ORDERED: FLUCONAZOLE 150 MG TABLET PO ONE (12:15)
[2022-09-11] MEDS ORDERED: ROSU20TA73 PO (12:18)
[2022-09-11] MEDS ORDERED: METO-408 PO (12:18)
[2022-09-11] MEDS ORDERED: EMPA25TA3 PO (12:18)
[2022-09-11] MEDS ORDERED: SEMA1PEN3 SQ (12:18)
[2022-09-11] MEDS ORDERED: OMEG100033 PO (12:18)
[2022-09-11] MEDS ORDERED: TRI2515O TP (12:18)
[2022-09-11] MEDS ORDERED: CETI10TA58 PO (12:18)
[2022-09-11 12:29] LABS: BASOPHILS % (AUTO) 0.9 % (0.0-2.0); EOSINOPHILS % (AUTO) 1.6 % (1.0-6.0); HEMATOCRIT 36.9 % (36-46); HEMOGLOBIN 12.1 g/dL (12.0-16.0); LYMPHOCYTES # (AUTO) 2.3 K/uL (1.0-4.8); LYMPHOCYTES % (AUTO) 36.2 % (22.0-44.0); MEAN CORPUSCULAR HEMOGLOBIN 26.3 pg (26.0-34.0); MEAN CORPUSCULAR HGB CONC 32.7 G/dL (31.0-37.0); MEAN CORPUSCULAR VOLUME 80 fL (80-100); MONOCYTES # (AUTO) 0.5 K/uL (0.1-1.0); MONOCYTES % (AUTO) 7.2 % (2.0-9.0); NEUTROPHILS # (AUTO) 3.5 K/uL (1.8-7.7); NEUTROPHILS % (AUTO) 54.1 % (40.0-70.0); PLATELET COUNT (AUTO) 304 K/uL (150-450); RED BLOOD CELL COUNT(AUTO) 4.59 MIL/uL (4.00-5.20); RED CELL DISTRIBUTION WIDTH 15.9 % (11.5-14.5)
[2022-09-11 12:47] LABS: ANION GAP 8 mmol/L (8-16); CALCIUM, TOTAL 8.8 mg/dL (8.8-10.5); CARBON DIOXIDE 27 mmol/L (22-29); CHLORIDE 96 mmol/L (98-107); CREATININE 0.62 mg/dL (0.60-1.30); GLOMERULAR FILTR. RATE CALC > 60 mL/min (>60); GLUCOSE,RANDOM 311 mg/dL (70-110); POTASSIUM 3.9 mmol/L (3.5-5.1); SODIUM SERUM 131 mmol/L (136-145); UREA NITROGEN, BLOOD 10 mg/dL (7-18)
[2022-09-11 13:08] LABS: ALANINE AMINOTRANSFERASE 27 U/L (12-78); ALKALINE PHOSPHATASE 131 U/L (46-116); ASPARTATE AMINOTRANSFERASE 25 U/L (15-37); BILIRUBIN,TOTAL 0.2 mg/dL (0.1-1.0); HCG,QUANTITATIVE < 1 mIU/mL (0-6); LIPASE 146 U/L (73-393); TOTAL PROTEIN, SERUM 6.8 g/dL (6.4-8.2)
[2022-09-11] MEDS ORDERED: SODIUM CHLORIDE 0.9% 1,000 ML IV ONE (13:15)
[2022-09-11 13:30] LABS: APPEARANCE,URINE CLEAR (CLEAR); BILIRUBIN,URINE NEGATIVE (NEGATIVE); GLUCOSE, URINE (UA) >=1000 mg/dL (NEGATIVE); LEUKOCYTE ESTERASE ,URINE SMALL (NEGATIVE); OCCULT BLOOD,URINE NEGATIVE (NEGATIVE); PH,URINE 5.5 (5.0-8.0); PROTEIN,URINE TRACE mg/dL (NEGATIVE); SPECIFIC GRAVITIY, URINE 1.035 (1.003-1.030); UROBILINOGEN,URINE <=1.0 mg/dL (<=1.0)
[2022-09-11] MEDS ORDERED: KETOROLAC TROMETHAMINE 30 MG/ML VIAL IVP ONE (13:30)
[2022-09-11 13:59] LABS: NITRATE,URINE POSITIVE (NEGATIVE)
[2022-09-11] MEDS ORDERED: CEPH-558 PO (16:11)
[2022-09-11 16:43] VITALS: BP 136/79
== END 2022-09-11 16:45 | disposition home or self-care (01) ==
LOC: EMS 11:09
DX: N39.0 Urinary tract infection, site not specified (principal); B37.31 Acute candidiasis of vulva and vagina; E11.65 Type 2 diabetes mellitus with hyperglycemia; E78.00 Pure hypercholesterolemia, unspecified; I10 Essential (primary) hypertension; Z90.49 Acquired absence of other specified parts of digestive tract; Z98.890 Other specified postprocedural states
CPT/HCPCS: 99285; 74176; 96374; 96361; 80053; 82962; 83690; 84702; 85025; 36415; 87086; 87186; J1885; J7030

== ENCOUNTER 2022-09-20 21:58 | Emergency (ER) | payer OTHER ==
[~2022-09-20] VITALS: Ht 165.1 cm; Wt 107.0 kg
[~2022-09-20 21:58] MED LIST changes: +CEPH-558 PO; +CETI10TA58 PO; -DULA1.5P SQ; -EMPA10TA3 PO; +EMPA25TA3 PO; +METO-408 PO; +OMEG100033 PO; +ROSU20TA73 PO; +SEMA1PEN3 SQ; +TRI2515O TP
[2022-09-20 23:00] VITALS: BP 135/74
[2022-09-21] MEDS ORDERED: HYDROCODONE/ACETAMINOPHEN 5-325 MG TABLET PO ONE (04:00)
[2022-09-21] MEDS ORDERED: PERTUSS(ACELL),DIPH,TET VAC/PF 0.5 ML SYRINGE IM. ONE (04:15)
[2022-09-21] MEDS ORDERED: AMOX1TAB16 PO (04:44)
== END 2022-09-21 03:00 | disposition home or self-care (01) ==
LOC: EMS 21:59
DX: S61.452A Open bite of left hand, initial encounter (principal); E11.9 Type 2 diabetes mellitus without complications; E78.00 Pure hypercholesterolemia, unspecified; I10 Essential (primary) hypertension; Z90.49 Acquired absence of other specified parts of digestive tract; Z98.890 Other specified postprocedural states; W54.0XXA Bitten by dog, initial encounter; Y93.89 Activity, other specified; Y92.89 Other specified places as the place of occurrence of the external cause; Y99.8 Other external cause status
CPT/HCPCS: 90471; 90715; 99283

== ENCOUNTER 2022-10-24 11:47 | Emergency (ER) | payer OTHER ==
[~2022-10-24] VITALS: Ht 165.1 cm; Wt 104.5 kg
[~2022-10-24 11:47] MED LIST changes: +AMOX1TAB16 PO
[2022-10-24 12:29] LABS: COVID AG,FIA SOURCE NASAL SWAB
[2022-10-24 13:19] LABS: INFLUENZA TYPE A NEGATIVE FOR TYPE A (NEGATIVE); INFLUENZA TYPE B NEGATIVE FOR TYPE B (NEGATIVE)
[2022-10-24 14:00] LABS: BASOPHILS % (AUTO) 0.9 % (0.0-2.0); HEMATOCRIT 36.7 % (36-46); LYMPHOCYTES # (AUTO) 1.5 K/uL (1.0-4.8); LYMPHOCYTES % (AUTO) 20.8 % (22.0-44.0); MEAN CORPUSCULAR HEMOGLOBIN 25.7 pg (26.0-34.0); MEAN CORPUSCULAR HGB CONC 32.6 G/dL (31.0-37.0); MEAN CORPUSCULAR VOLUME 79 fL (80-100); MONOCYTES # (AUTO) 0.5 K/uL (0.1-1.0); MONOCYTES % (AUTO) 7.2 % (2.0-9.0); NEUTROPHILS # (AUTO) 5.1 K/uL (1.8-7.7); NEUTROPHILS % (AUTO) 69.1 % (40.0-70.0); PLATELET COUNT (AUTO) 289 K/uL (150-450); RED BLOOD CELL COUNT(AUTO) 4.66 MIL/uL (4.00-5.20); RED CELL DISTRIBUTION WIDTH 16.5 % (11.5-14.5)
[2022-10-24 14:07] LABS: ANION GAP 13 mmol/L (8-16); CALCIUM, TOTAL 9.2 mg/dL (8.8-10.5); CARBON DIOXIDE 24 mmol/L (22-29); CHLORIDE 97 mmol/L (98-107); CREATININE 0.63 mg/dL (0.60-1.30); GLOMERULAR FILTR. RATE CALC > 60 mL/min (>60); GLUCOSE,RANDOM 309 mg/dL (70-110); SODIUM SERUM 134 mmol/L (136-145); UREA NITROGEN, BLOOD 9 mg/dL (7-18)
[2022-10-24 14:12] LABS: ALANINE AMINOTRANSFERASE 30 U/L (12-78); ALBUMIN 3.3 g/dL (3.4-5.0); ALKALINE PHOSPHATASE 108 U/L (46-116); ASPARTATE AMINOTRANSFERASE 26 U/L (15-37); LIPASE 154 U/L (73-393); TOTAL PROTEIN, SERUM 6.9 g/dL (6.4-8.2)
[2022-10-24 14:15] LABS: BILIRUBIN,TOTAL 0.1 mg/dL (0.1-1.0)
[2022-10-24] MEDS ORDERED: KETOROLAC TROMETHAMINE 30 MG/ML VIAL IM ONE (14:30)
[2022-10-24 15:30] VITALS: BP 136/91
[2022-10-24] MEDS ORDERED: NIRM1TAB4 PO (15:43)
[2022-10-24] MEDS ORDERED: ALBU90AE IH (15:43)
[2022-10-24] MEDS ORDERED: AMOX250C4 PO (15:57)
== END 2022-10-24 16:06 | disposition home or self-care (01) ==
LOC: EMS 11:48
DX: U07.1 COVID-19 (principal); E11.9 Type 2 diabetes mellitus without complications; E78.00 Pure hypercholesterolemia, unspecified; I10 Essential (primary) hypertension; Z90.49 Acquired absence of other specified parts of digestive tract; Z98.890 Other specified postprocedural states; Z20.822 Contact with and (suspected) exposure to COVID-19
CPT/HCPCS: 99285; 71045; 87426; 80053; 82962; 83690; 84484; 84703; 85025; 85379; 87804; 36415; 93005; 96372; J1885

== ENCOUNTER 2024-10-05 19:52 | Emergency (ER) | payer MEDICAID, OTHER ==
[~2024-10-05] VITALS: Ht 165.1 cm; Wt 100.0 kg
[~2024-10-05 19:52] MED LIST changes: +ALBU90AE IH; -AMOX1TAB16 PO; +AMOX250C4 PO; -CEPH-558 PO; -CETI10TA58 PO; -EMPA25TA3 PO; -METO-408 PO; +NIRM1TAB4 PO; -ROSU20TA73 PO; -SEMA1PEN3 SQ; -TRI2515O TP
[2024-10-05 20:43] LABS: APPEARANCE,URINE CLEAR (CLEAR); BILIRUBIN,URINE NEGATIVE (NEGATIVE); COLOR,URINE LIGHT YELLOW (YELLOW); GLUCOSE, URINE (UA) >=1000 mg/dL (NEGATIVE); KETONES,URINE TRACE mg/dL (NEGATIVE); LEUKOCYTE ESTERASE ,URINE LARGE (NEGATIVE); NITRATE,URINE NEGATIVE (NEGATIVE); OCCULT BLOOD,URINE NEGATIVE (NEGATIVE); PH,URINE 5.5 (5.0-8.0); PROTEIN,URINE NEGATIVE (NEGATIVE); SPECIFIC GRAVITIY, URINE 1.037 (1.003-1.030); UROBILINOGEN,URINE <=1.0 mg/dL (<=1.0)
[2024-10-06] MEDS: CEPHALEXIN MONOHYDRATE 500 MG CAPSULE PO ONE (02:37)
[2024-10-06] MEDS: HYDROCODONE/ACETAMINOPHEN 5-325 MG TABLET PO ONE (02:37)
[2024-10-06] MEDS: FLUCONAZOLE 150 MG TABLET PO ONE (02:37)
[2024-10-06] MEDS: INSULIN REGULAR, HUMAN 100 UNITS/ML SQ ONE (02:39)
[2024-10-06] MEDS ORDERED: CEPH-558 PO (02:49)
[2024-10-06] MEDS ORDERED: HYDR-4062 PO (02:49)
[2024-10-06] MEDS ORDERED: PHEN-674 PO (02:49)
[2024-10-06] MEDS ORDERED: FLUC150T61 PO (02:49)
[2024-10-06] MEDS ORDERED: MICO45CR76 VG (02:49)
[2024-10-06] MEDS ORDERED: METF-1211 PO (02:49)
[2024-10-06 03:00] VITALS: BP 147/73; PULSE 94; RESP 20; TEMP 97.9; O2SAT 97
[2024-10-06 06:59] LABS: BACTERIA,URINE Few /HPF (None Seen); RBC,URINE 0-2 /HPF (0-2); SQUAMOUS EPITHELIAL CELL,UR Few /LPF (None Seen)
== END 2024-10-06 03:31 | disposition home or self-care (01) ==
LOC: EMS 19:55
DX: N39.0 Urinary tract infection, site not specified (principal); N89.8 Other specified noninflammatory disorders of vagina; E11.65 Type 2 diabetes mellitus with hyperglycemia; E78.00 Pure hypercholesterolemia, unspecified; I10 Essential (primary) hypertension; Z90.49 Acquired absence of other specified parts of digestive tract; Z87.440 Personal history of urinary (tract) infections; Z91.119 Patient's noncompliance with dietary regimen due to unspecified reason
CPT/HCPCS: 99285; 81001; 87086; 76856; 96372; J1815; 87077; 87186

== ENCOUNTER 2025-03-22 04:35 | Emergency (ER) | payer SELFPAY ==
[~2025-03-22] VITALS: Ht 165.1 cm; Wt 100.0 kg
[~2025-03-22 04:35] MED LIST changes: +CEPH-558 PO; +FLUC150T61 PO; +HYDR-4062 PO; +MICO45CR76 VG; +PHEN-674 PO
[2025-03-22 05:59] LABS: PLATELET COUNT (AUTO) 412 K/uL (150-450); RED BLOOD CELL COUNT(AUTO) 4.68 MIL/uL (4.00-5.20); RED CELL DISTRIBUTION WIDTH 16.4 % (11.5-14.5); WHITE BLOOD COUNT (AUTO) 6.3 K/uL (4.5-11.0)
[2025-03-22 06:02] LABS: RBC MORPHOLOGY COMMENT ABNORMAL RBC MORPH
[2025-03-22 06:14] LABS: CALCIUM, TOTAL 8.8 mg/dL (8.8-10.5); CREATININE 0.79 mg/dL (0.60-1.30); GLOMERULAR FILTR. RATE CALC > 60 mL/min (>60); SODIUM SERUM 133 mmol/L (136-145); UREA NITROGEN, BLOOD 13 mg/dL (7-18)
[2025-03-22 06:19] LABS: ASPARTATE AMINOTRANSFERASE 16 U/L (15-37); HCG,QUANTITATIVE < 1 mIU/mL (0-6); TOTAL PROTEIN, SERUM 6.8 g/dL (6.4-8.2)
[2025-03-22 06:23] LABS: GLUCOSE,RANDOM 409 mg/dL (70-110)
[2025-03-22] MEDS ORDERED: ONDA-104 PO (07:22)
[2025-03-22] MEDS: ONDANSETRON 4 MG TABLET PO ONE (08:14)
[2025-03-22] MEDS: INSULIN LISPRO 100 UNITS/ML SQ ONE (08:15)
[2025-03-22 09:03] VITALS: BP 129/79; PULSE 96; RESP 18; TEMP 97.5; O2SAT 98
== END 2025-03-22 09:04 | disposition home or self-care (01) ==
LOC: EMS 04:35
DX: K52.9 Noninfective gastroenteritis and colitis, unspecified (principal); E11.65 Type 2 diabetes mellitus with hyperglycemia; Z91.011 Allergy to milk products; Z59.71 Insufficient health insurance coverage; Z79.899 Other long term (current) drug therapy
CPT/HCPCS: 99283; 80048; 80076; 83690; 84702; 85025; 96372; Q0162; J1815